=== PATIENT | female | born 1995 | race American Indian/Alaskan Native ===

== ENCOUNTER 2016-05-28 15:45 | Observation (INO) | payer MEDICAID ==
--- NOTE | 2016-05-28 18:14 | History and Physical Report ---
History of Present Illness Date of examination: 05/28/16 History of present illness: Vital Signs Height: 64 in. Weight (lb): 169 BMI: 29.1 History of Present Illness: This is a 20 years old female who presents with pelvic pain. She denies dysuria, dysmenorrhea, dyspareunia, vaginal itching, vaginal discharge, vaginal odor, painful bowel movements, constipation, diarrhea, nausea, vomiting, back pain and fever. Pain is located suprapubic. Episodes are unpredictable. Patient notes pain is better with rest. The patient also presents with menstrual disorder. She denies irregular menses, mid-cycle spotting, heavy bleeding, lack of menses, dysmenorrhea, clotting, history of ovarian cysts, history of thyroid disease, history of fibroids, history of PCOS, history of bleeding disorder, lightheadedness, fatigue and cramping. seen at [facility] ER Blood type B Positive Menstrual History Regularity: regular Menses every: 28 days Duration: 4 LMP: 03/23/2016 LMP reliability: definite LMP character: normal test type: urine test Date: 05/28/2016 BC at conception: none Planned ? no EDC Calculations LMP: 12/28/2016 Past History : 2 Term Births: 1 Premature Births: 0 Living Children: 1 Para: 1 Aborta: 0 Elect. Ab: 0 Spont. Ab: 0 Ectopics: 0 # 1 Delivery date: 10/17/2012 Weeks Gestation: 41.1 Delivery type: Vaginal Anesthesia type: epidural Delivery location: [facility] Infant Sex: male weight: 6.63 Comments: none Past Medical History: heart murmur--does not take antibiotic w/ dental procedures Asthma Family History Summary: Other family member - Has Family History of Hypertension - Entered On: 05/28/2016 Other family member - Has Family History of Diabetes - Entered On: 05/28/2016 Other family member - Has Family History of CVA or Stroke - Entered On: 05/28/2016 General Comments - FH: No Family History of Breast Cancer No Family History of Colon Cancer No Family History of Ovarvian Cancer Social History: [facility] no e/t/d Patient is single Risk Factors: Smoked Tobacco Use: Never smoker Drug use: no HIV high-risk behavior: low risk Alcohol use: no Past Medical History Abnormal PAP: negative Uterine Anomaly: negative Social Hx: [facility] no e/t/d Patient is single Infection History Hx of STD: chlamydia HIV Risk Eval: low risk Hepatitis B Risk Eval: low risk Personal hx. of genital herpes: no Partner hx. of genital herpes: no Genetic History Congenital Heart Defect: Mom: no Dad: no Laura Disease: Mom: no Dad: no Thalassemia Mom: no Dad: no Neural Tube Defect Mom: no Dad: no Down's Syndrome Mom: no Dad: no Aamir-Sachs Mom: no Dad: no Sickle Cell Disease/Trait Mom: no Dad: no Hemophilia Mom: no Dad: no Muscular Dystrophy Mom: no Dad: no Cystic Fibrosis Mom: no Dad: no Nas Chorea Mom: no Dad: no Mental Retardation Mom: no Dad: no Fragile X Mom: no Dad: no Other Genetic/Chromosomal Disorder Mom: no Dad: no Child w/other defect Mom: no Dad: no Current Allergies (reviewed today): No known allergies Review of Systems General Complains of fatigue. Denies fever, chills, sweats, anorexia, weakness, malaise, weight loss and sleep disorder. Complains of abnormal vaginal bleeding and pelvic pain. Denies vaginal discharge, incontinence, dysuria, hematuria, urinary frequency, amenorrhea, menorrhagia, genital sores, decreased libido, painful periods, painful sex, urinary urgency, hot flashes, vaginal dryness, vaginal itching and vaginal odor. CV Denies chest pains, palpitations, syncope, dyspnea on exertion, orthopnea, PND and peripheral edema. Resp Denies cough, dyspnea at rest, excessive sputum, hemoptysis, wheezing and pleurisy. GI Denies nausea, vomiting, diarrhea, constipation, change in bowel habits, abdominal pain, melena, hematochezia, jaundice, gas/bloating, indigestion/ heartburn, dysphagia and odynophagia. Breast Complains of breast pain. Denies left breast lump, right breast lump, nipple discharge, bloody discharge from nipple, abnormal mammogram and breast enlargement. Psych Denies depression, anxiety, irritability and mood swings. Past History Past Medical History: other (SEE HPI) Past Surgical History: Other (SEE HPI) Social history: single, full code, other (SEE HPI) Family history: other (SEE HPI) Medications and Allergies Allergies Allergy/AdvReac Type Severity Reaction Status Date / Time No Known Allergies Allergy Verified 05/29/16 10:12 Review of Systems Constitutional: other (SEE HPI) Exam - Physical Exam Narrative exam: HEENT: normocephalic, no lesions or deformities Neck/Thyroid: supple, thyroid normal Skin no ulcers, xanthomas .Tatoo(s) are present Chest: respiratory effort normal, lungs clear to auscultation Breasts: skin/areolae normal, no masses, no nipple discharge, no erythema/warmth /tenderness, and axillae normal. 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 Cervix: normal appearance, no lesions. Uterus: normal size and position, midline, mobile Adnexae: no masses or tenderness Rectovaginal: exam defered Results - Labs CBC & Chem 7: 05/29/16 12:48 05/29/16 12:48 Assessment and Plan - Patient Problems (1) Ectopic , tubal Current Visit: Yes Status: Acute Qualifiers: Intrauterine status: without intrauterine Qualified Code(s): O00.10 - Tubal without intrauterine Plan to address problem: Diagnosis explained to patient . Questions answered. Medical and surgical treatment options discussed Patient desires methrotrexate therapy. Risk of rupture and significant bleeding discussed. Patient understands and desires to proceed.
[2016-05-29] MEDS ORDERED: METHOTREXATE IM ONE ×3 (08:00→12:30)
[2016-05-29] MEDS ORDERED: DULCOLAX PR PRN (10:00)
[2016-05-29] MEDS ORDERED: ZOFRAN IV PRN (10:30)
[2016-05-29] MEDS ORDERED: TYLENOL PO PRN ×2 (10:30)
[2016-05-29] MEDS ORDERED: MILK OF MAGNESIA PO PRN (10:30)
--- NOTE | 2016-05-29 12:42 | Admit Criteria Form ---
Admission Criteria Documentation: OBSTETRIC AND GYNECOLOGIC DISEASE GRG Clinical Indications for Admission to Inpatient Care (Place 'X' for any and all applicable criteria): Hospital admission is needed for appropriate care of the patient because of ANY ONE of the following (1)(2)(3): [ ]I. Hemodynamic instability, as indicated by ALL of the following (1)(2)(3)( 4)(5): [ ]a) Vital signs or other findings not as expected for chronic patient condition or baseline [ ]b) Instability indicated by ANY ONE of the following: [ ]i) Hypotension [ ]ii) Symptomatic tachycardia unresponsive to treatment (eg, analgesia, fluids, sedation as indicated) [ ]iii) Inadequate perfusion indicated by ANY ONE of the following: [ ]A. Lactic acidosis (greater than 2 mmol/ L) [ ]B. New abnormal capillary refill ( greater than 3 seconds) [ ]C. Reduced urine output [ ]D. New altered mental status [ ]iv) Orthostatic vital sign changes unresponsive to treatment (eg, fluids) [ ]v) Multiple IV fluid boluses required to maintain adequate blood pressure or perfusion [ ]vi) IV inotropic or vasopressor medication required to maintain adequate blood pressure or perfusion [ ]II. Obstetric infection requiring hospitalization indicated by ANY ONE of the following(13)(14): [ ]a) Chorioamnionitis [ ]b) Endometritis (except mild endometritis) [ ]c) Pelvic abscess [ ]d) Peritonitis [ ]e) Septic pelvic thrombophlebitis [ ]III. Amniotic fluid or pulmonary embolism(4)(5)(6) [X]IV. Suspected peritonitis or ectopic requiring monitoring beyond scope of 24 hours or observation care(7)(8) [ ]V. compromise requiring hospitalization indicated by ALL of the following(9)(10): [ ]a) compromise indicated by ANY ONE of the following(11): [ ]i) Abnormal heart rate monitoring [ ]ii) Abnormal contraction stress test [ ]iii) Abnormal biophysical profile [ ]iv) Abnormal Doppler flow in vessels (ie, Doppler velocimetry) (12) [ ]b) Persistence of compromise indicators during evaluation and observation monitoring [ ]. Ovarian hyperstimulation syndrome requiring hospitalization[A] indicated by ALL of the following(15): [ ]a) Recent ovarian stimulation with gonadotropins, or evidence on ultrasound of spontaneous emergence of large number of ovarian follicles [ ]b) Evidence of severe ovarian hyperstimulation syndrome indicated by ANY ONE of the following: [ ]i) Abdominal pain unresponsive to oral therapy [ ]ii) Acute respiratory distress syndrome [ ]iii) Electrolyte imbalance ( eg, hyponatremia, hyperkalemia) [ ]iv) Elevated liver enzymes [ ]v) Evidence of thromboembolism [ ]vi) Hemoconcentration (hematocrit greater than 45 % (0.45)) [ ]vii) Inability to maintain oral intake adequate to prevent hemoconcentration [ ]viii) Marked hypotension from baseline (eg, SBP 20 mmHg below patients usual pressure) [ ]ix) Oliguria or anuria [ ]x) Ovarian torsion [ ]xi) Pleural or pericardial effusion on x-ray or echocardiogram [ ]xii) Rapid increase in serum creatinine to greater than 1.2 mg/dL (106 micromoles/L) or creatinine clearance less than 50 mL/min/1.73m2 (0.84 mL/ sec/1.73m2) [ ]xiii) Ruptured ovarian cyst with hemorrhage [ ]xiv) Severe abdominal pain or peritoneal signs [ ]xv) Tense ascites that cannot be managed with paracentesis in outpatient setting [ ]VII.Pelvic infection requiring hospitalization indicated by ANY ONE of the following (16): [ ]a) Outpatient treatment has failed or is not appropriate (eg, inpatient monitoring required) [ ]b) Pelvic abscess [ ]c) Surgical emergency cannot be excluded (eg, rigid abdomen) [ ]d) Vomiting precluding outpatient and observation care management VIII. loss complications requiring inpatient medical treatment indicated by ANY ONE of the following (4)(7)(9): [ ]a) Fever [ ]b) Peritonitis [ ]c) Sepsis [ ]d) Severe abdominal pain [ ]IX. or patient requiring monitoring for severe heart failure, pulmonary disease, or other comorbid condition (eg, peripartum cardiomyopathy) (4)(17) [ ]X. patient with rupture of membranes requiring hospitalization indicated by ANY ONE of the following: [ ]a) Chorioamnionitis, cloudy amniotic fluid, or other evidence of infection [ ]b) compromise or other need for monitoring (11) [ ]c) Gestation longer than 23 weeks and ANY ONE of the following: [ ]i) Abnormal (noncephalic) presentation [ ]ii) Inadequate home environment (eg, home too far from hospital, unable to rapidly return to hospital) [ ]d) Temperature greater than 100.4 degrees F (38 degrees C)( oral) [ ]e) Threatened labor requiring monitoring beyond scope (eg, over 24 hours) of observation Care [ ] XI. complications, including severe lacerations, infections, or retained placenta (19) [ ] XII.Uterine bleeding with high-risk features indicated by ANY ONE of the following (4): [ ]a) Active major hemorrhage (eg, hemorrhage) [ ]b) Coagulopathy with active bleeding [ ]c) Gestational trophoblastic disease (eg, molar ) (20 ) [ ]d) (longer than 23 weeks) and ANY ONE of the following: [ ]i) Pain [ ]ii) Placental abruption, known or suspected [ ]iii) Placenta accrete, known or suspected(21) [ ]iv) Placenta previa, known or suspected [ ]v) Vasa previa [ ]e) Severe anemia [ ]XIII. Obstetric or Gynecologic Disease, condition or symptom for which ANY ONE of the following: [ ]a) Emergency and observation care have failed or are not considered appropriate ( Also use General Criteria: Observation Care Criteria as appropriate) [ ]b) Presence of a General Admission Criteria or Pediatric General Admission Criteria The original [facility] content created by [facility] has been revised. The portions of the content which have been revised are identified through the use of italic text or in bold, and [facility] has neither reviewed nor approved the modified material.All other unmodified content is copyright [facility]. Please see references footnoted in the [facility] Admission Criteria Met: Yes
[2016-05-29 12:58] LABS: Basophils % (Auto) 0.9 % (0.0-1.8); Eosinophils % (Auto) 2.7 % (0.0-4.3); Hematocrit 39.9 % (30.3-42.9); Hemoglobin 13.3 gm/dl (10.1-14.3); Mean Corpuscular HGB Conc 33 % (30-34); Mean Corpuscular Hemoglobin 27 pg (28-32); Mean Corpuscular Volume 81 fl (79-97); Platelet Count 213 K/mm3 (140-440); Red Blood Count 4.91 M/mm3 (3.65-5.03); Red Cell Distribution Width 13.8 % (13.2-15.2)
[2016-05-29 13:15] LABS: Alanine Aminotransferase 67 units/L (7-56); Albumin 3.6 g/dL (3.9-5); Albumin/Globulin Ratio 1.2 %; Alkaline Phosphatase 46 units/L (35-129); Anion Gap 15 mmol/L; Bilirubin,Total 0.3 mg/dL (0.1-1.2); Blood Urea Nitrogen 8 mg/dL (7-17); Calcium 8.7 mg/dL (8.4-10.2); Carbon Dioxide 25 mmol/L (22-30); Chloride 103.7 mmol/L (98-107); Glucose 78 mg/dL (65-100); Potassium 4.1 mmol/L (3.6-5.0); Sodium 140 mmol/L (137-145); Total Protein 6.5 g/dL (6.3-8.2)
--- NOTE | 2016-05-29 14:47 | Short Stay Summary ---
Short Stay Documentation Date of service: 05/29/16 - History H&P: dictated Past Medical History: other (SEE HPI) Past Surgical History: Other (SEE HPI) Social history: single, full code, other (SEE HPI) - Allergies and Medications Current Medications: Allergies No Known Allergies Allergy (Verified 05/29/16 10:12) Home Medications Medication Instructions Recorded Confirmed Last Taken Type Acetaminophen/Codeine [Tylenol #3] 1 tab PO Q4HR PRN #20 tablet 05/29/16 Unknown Rx Ibuprofen [Motrin 800 MG tab] 800 mg PO Q6H PRN #30 tablet 05/29/16 Unknown Rx Active Medications Acetaminophen (Tylenol) 650 mg PO Q4H PRN PRN Reason: Pain MILD(1-3) Acetaminophen (Tylenol) 650 mg PO Q4H PRN PRN Reason: fever>100.5 Bisacodyl (Dulcolax) 10 mg ME QDAY PRN PRN Reason: Constipation unrelieved by MOM Magnesium Hydroxide (Milk Of Magnesia) 30 ml PO Q4H PRN PRN Reason: Constipation Ondansetron HCl (Zofran) 4 mg IV Q8H PRN PRN Reason: Nausea And Vomiting - Hospital course Hospital course: Patient was admitted with diagnosis was ectopic . Patient received the methotrexate treatment without complications. Patient was discharged in stable condition with follow-up in office in 3-4 days. - Disposition Condition at discharge: Good Disposition: DISCHARGED TO HOME OR SELFCARE - Discharge Diagnoses (1) Ectopic , tubal Status: Acute Qualifiers: Intrauterine status: without intrauterine Qualified Code(s): O00.10 - Tubal without intrauterine Short Stay Discharge Plan Activity: no restrictions Diet: regular Additional Instructions: Patient was told to expect some uterine cramping as possible vaginal bleeding. She'll call office for fever chills nausea vomiting or pain relief with the medication. Patient follow-up and stress the need for serial hCGs until 0 level was met Follow up with: JOSE REDMAN MD [Staff Physician] - 7 Days Forms: [facility] Discharge Summary Prescriptions: Acetaminophen/Codeine [Tylenol #3] 1 tab PO Q4HR PRN #20 tablet PRN Reason: Pain Ibuprofen [Motrin 800 MG tab] 800 mg PO Q6H PRN #30 tablet PRN Reason: Pain
[2016-05-29 16:38] VITALS: BP 103/57
== END 2016-05-29 17:26 | disposition home or self-care (01) ==
LOC: UNDOADMOB 15:45 → 3A 15:45 → OB 05-29 10:07
PROVIDERS: ADMIT Obstetrics & Gynecology; ATTEND Obstetrics & Gynecology
DX: O00.10 Tubal pregnancy without intrauterine pregnancy (principal); Z3A.00 Weeks of gestation of pregnancy not specified; Z83.3 Family history of diabetes mellitus; Z82.49 Family history of ischemic heart disease and other diseases of the circulatory system
CPT/HCPCS: 36415; 80053; 84702; 85025; 96372; G0378; G0379; J9260

== ENCOUNTER 2017-05-20 21:28 | Emergency (ER) | payer MEDICAID ==
--- NOTE | 2017-05-20 22:30 | XRay Report ---
FINAL REPORT PROCEDURE: XR CHEST ROUTINE 2V TECHNIQUE: PA and lateral chest radiographs were obtained. CPT 61868 HISTORY: Shortness of breath COMPARISON: No prior studies are available for comparison. FINDINGS: Heart: Normal. Mediastinum/Vessels: Normal. Lungs/Pleural space: Normal. Bony thorax: No acute osseous abnormality. Other: IMPRESSION: Normal examination.
[2017-05-20 22:33] LABS: BUN/Creatinine Ratio 14; Blood Urea Nitrogen 10 mg/dL (7-17); Calcium 8.7 mg/dL (8.4-10.2); Hemolysis Index 12
[2017-05-20 22:56] LABS: Basophils # (Auto) 0.1 K/mm3 (0.0-0.1); Basophils % (Auto) 0.6 % (0.0-1.8); Eosinophils # (Auto) 0.3 K/mm3 (0.0-0.4); Eosinophils % (Auto) 2.5 % (0.0-4.3); Hematocrit 41.7 % (30.3-42.9); Hemoglobin 13.2 gm/dl (10.1-14.3); Lymphocytes # (Auto) 3.1 K/mm3 (1.2-5.4); Lymphocytes % (Auto) 25.9 % (13.4-35.0); Mean Corpuscular HGB Conc 32 % (30-34); Mean Corpuscular Hemoglobin 26 pg (28-32); Mean Corpuscular Volume 83 fl (79-97); Monocytes # (Auto) 1.2 K/mm3 (0.0-0.8); Platelet Count 245 K/mm3 (140-440); Red Blood Count 5.02 M/mm3 (3.65-5.03); Red Cell Distribution Width 14.1 % (13.2-15.2)
[2017-05-21] MEDS ORDERED: DUONEB *Not for PRN Use IH ONE ×2 (06:41→09:09)
--- NOTE | 2017-05-21 06:46 | Emergency Department Report ---
HPI - General Chief Complaint: Dyspnea/Respdistress Time Seen by Provider: 05/21/17 06:17 - HPI HPI: 21-year-old -[place] female presents to the emergency department with a complaint of some shortness of breath that began last night around 7 PM. She also has some generalized chest soreness. She was sleeping when approached for the history and physical but is easily arousable and says that she feels a little dizzy but otherwise the shortness of breath has improved. She has a past medical history of asthma. She is a nonsmoker and denies any illicit drug use. She used her albuterol inhaler prior to presentation without any relief. No recent travel or sick contacts at home. He does not have a primary care physician. She denies any cough, abdominal pain, nausea, vomiting or diaphoresis. ED Past Medical Hx - Past Medical History Hx Heart Attack/AMI: No Hx Congestive Heart Failure: No Hx Diabetes: No Hx Asthma: Yes Hx COPD: No Hx HIV: No - Surgical History Past Surgical History?: No - Social History Smoking Status: Never Smoker Substance Use Type: None - Medications Home Medications: Home Medications Medication Instructions Recorded Confirmed Last Taken Type Acetaminophen/Codeine [Tylenol #3] 1 tab PO Q4HR PRN #20 tablet 05/29/16 Unknown Rx Ibuprofen [Motrin 800 MG tab] 800 mg PO Q6H PRN #30 tablet 05/29/16 Unknown Rx ED Review of Systems ROS: Stated complaint: ANITA Other details as noted in HPI Comment: All other systems reviewed and negative Constitutional: denies: chills, fever Eyes: denies: eye pain, eye discharge, vision change ENT: denies: ear pain, throat pain Respiratory: shortness of breath. denies: cough Cardiovascular: chest pain. denies: edema Gastrointestinal: denies: abdominal pain, nausea, diarrhea Genitourinary: denies: urgency, dysuria, discharge Musculoskeletal: denies: back pain, joint swelling, arthralgia Skin: denies: rash, lesions Neurological: other (dizziness). denies: numbness Physical Exam - Physical Exam Vital Signs: Vital Signs 05/20/17 05/21/17 05/21/17 21:46 01:57 02:00 Temperature 98.3 F Pulse Rate 78 67 Respiratory 16 24 20 Rate Blood Pressure 123/65 Blood Pressure [Right] O2 Sat by Pulse 100 98 98 Oximetry 05/21/17 05/21/17 05/21/17 02:16 02:27 02:30 Temperature 97.7 F Pulse Rate 70 67 70 Respiratory 18 16 19 Rate Blood Pressure Blood Pressure 122/78 [Right] O2 Sat by Pulse 98 100 98 Oximetry 05/21/17 05/21/17 05/21/17 02:46 03:00 03:16 Temperature Pulse Rate 74 76 71 Respiratory 18 17 20 Rate Blood Pressure Blood Pressure [Right] O2 Sat by Pulse 98 97 99 Oximetry 05/21/17 05/21/17 05/21/17 03:30 03:53 04:00 Temperature Pulse Rate 67 92 H 93 H Respiratory 15 14 16 Rate Blood Pressure Blood Pressure 110/61 [Right] O2 Sat by Pulse 98 99 98 Oximetry 05/21/17 06:00 Temperature Pulse Rate 71 Respiratory 14 Rate Blood Pressure Blood Pressure 90/45 [Right] O2 Sat by Pulse 97 Oximetry Physical Exam: GENERAL: The patient is well-developed well-nourished. HENT: Normocephalic. Atraumatic. Patient has moist mucous membranes. EYES: Extraocular motions are intact. Pupils equal reactive to light bilaterally. NECK: Supple. Trachea is midline. CHEST/LUNGS: Clear to auscultation. There is no respiratory distress noted. There is some midsternal chest tenderness to palpation that is reproducible. HEART/CARDIOVASCULAR: Regular. There is no tachycardia. There is no murmur. ABDOMEN: Abdomen is soft, nontender. Patient has normal bowel sounds. There is no abdominal distention. SKIN: Skin is warm and dry. NEURO: The patient is awake, alert, and oriented. The patient is cooperative. The patient has no focal neurologic deficits. The patient has normal speech. MUSCULOSKELETAL: There is no tenderness or deformity. There is no limitation range of motion. There is no evidence of acute injury. ED Course Vital Signs 05/20/17 05/21/17 05/21/17 21:46 01:57 02:00 Temperature 98.3 F Pulse Rate 78 67 Respiratory 16 24 20 Rate Blood Pressure 123/65 Blood Pressure [Right] O2 Sat by Pulse 100 98 98 Oximetry 05/21/17 05/21/17 05/21/17 02:16 02:27 02:30 Temperature 97.7 F Pulse Rate 70 67 70 Respiratory 18 16 19 Rate Blood Pressure Blood Pressure 122/78 [Right] O2 Sat by Pulse 98 100 98 Oximetry 05/21/17 05/21/17 05/21/17 02:46 03:00 03:16 Temperature Pulse Rate 74 76 71 Respiratory 18 17 20 Rate Blood Pressure Blood Pressure [Right] O2 Sat by Pulse 98 97 99 Oximetry 05/21/17 05/21/17 05/21/17 03:30 03:53 04:00 Temperature Pulse Rate 67 92 H 93 H Respiratory 15 14 16 Rate Blood Pressure Blood Pressure 110/61 [Right] O2 Sat by Pulse 98 99 98 Oximetry 05/21/17 06:00 Temperature Pulse Rate 71 Respiratory 14 Rate Blood Pressure Blood Pressure 90/45 [Right] O2 Sat by Pulse 97 Oximetry ED Medical Decision Making - Lab Data Result diagrams: 05/20/17 22:02 05/20/17 22:02 - EKG Data -: EKG Interpreted by Me EKG shows normal: sinus rhythm, axis, intervals, QRS complexes, ST-T waves Rate: normal - EKG Data When compared to previous EKG there are: previous EKG unavailable Interpretation: normal EKG - Radiology Data Radiology results: report reviewed, image reviewed interpreted by me: Chest x-ray does not show any acute process. There are no pleural effusions, obvious pneumonia and there is no pneumothorax. CTA CHEST: HISTORY: Short of breath, elevated d-dimer. COMPARISON: none. TECHNIQUE: Helical CT in 1.25mm intervals following IV contrast. Pulmonary embolus protocol. Sagittal and coronal reformatted images. Rotational MIP images. FINDINGS: Contrast bolus is satisfactory. No pulmonary embolus is identified. Thyroid gland: Normal. Tracheobronchial tree: Normal. Esophagus: Normal. Heart: Normal. Pericardium: Normal. Mediastinum: Normal. Lung Boo: normal. Pleural Spaces: Normal. Musculoskeletal: Normal. IMPRESSION: No evidence for pulmonary embolus. Unremarkable CT chest with contrast. Transcribed By: TTR Dictated By: RUPAL HURST JR, MD Electronically Authenticated By: RUPAL HURST JR, MD Signed Date/Time: 05/21/17 1001 - Medical Decision Making Patient presents with some chest pain and shortness of breath. It started last night but later mom's bedside and says that she has been dealing with this intermittently over the past few years. EKG is normal without any ST elevation OK, ischemia or dysrhythmia. Negative troponins 2. Slightly elevated d-dimer at [address] angiography of the chest was done that was unremarkable without any evidence of pulmonary embolism, dissection or any other acute process. She does have follow-up with a primary care physician. She will be given a referral for cardiology. She'll return to the ER with any worsening of her symptoms or any acute distress. - Differential Diagnosis costochondritis, OK, PE, Pneumonia Critical Care Time: No Critical care attestation.: If time is entered above; I have spent that time in minutes in the direct care of this critically ill patient, excluding procedure time. ED Disposition Clinical Impression: Costochondritis Chest pain Qualifiers: Chest pain type: unspecified Qualified Code(s): R07.9 - Chest pain, unspecified Disposition: - TO HOME OR SELFCARE Is pt being admited?: No Condition: Stable Instructions: Chest Pain (ED), Costochondritis (ED) Additional Instructions: Please follow-up with your primary care physician in the next few days. I have given you a referral for a local sales applications engineer, Dr. Meyers, in case you would like to follow up regarding your intermittent chest pains. Return to the emergency Department with any worsening of your symptoms or any acute distress. Referrals: LLOYD PATEL MD [Primary Care Provider] - 3-5 Days PARRIS MEYERS MD [Staff Physician] - 3-5 Days Time of Disposition: 10:15
--- NOTE | 2017-05-21 10:08 | Cat Scan Report ---
CTA CHEST: HISTORY: Short of breath, elevated d-dimer. COMPARISON: none. TECHNIQUE: Helical CT in 1.25mm intervals following IV contrast. Pulmonary embolus protocol. Sagittal and coronal reformatted images. Rotational MIP images. FINDINGS: Contrast bolus is satisfactory. No pulmonary embolus is identified. Thyroid gland: Normal. Tracheobronchial tree: Normal. Esophagus: Normal. Heart: Normal. Pericardium: Normal. Mediastinum: Normal. Lung Boo: normal. Pleural Spaces: Normal. Musculoskeletal: Normal. IMPRESSION: No evidence for pulmonary embolus. Unremarkable CT chest with contrast.
[2017-05-21 10:36] VITALS: BP 101/58
== END 2017-05-21 10:47 | disposition home or self-care (01) ==
LOC: ED 21:28
DX: M94.0 Chondrocostal junction syndrome [Tietze] (principal); R07.9 Chest pain, unspecified; J45.909 Unspecified asthma, uncomplicated
CPT/HCPCS: 36415; 71046; 71275; 80048; 84484; 84703; 85025; 85379; 93005; 93010; 94640; 99284; Q9967